=== PATIENT | female | born 1970 | race Two or more races ===

== ENCOUNTER 2019-07-03 17:18 | Emergency (ER) | payer OTHER ==
[~2019-07-03] VITALS: Ht 165.1 cm; Wt 58.1 kg
--- NOTE | 2019-07-03 17:57 | NUR ---
Patient eyes close lethargic but arousable place on monitor ,gown continue to monitor
[2019-07-03 18:18] LABS: BASOPHILS # (AUTO) 0.1 /CMM (0.0-0.2); BASOPHILS % (AUTO) 1.1 % (0.0-2.0); EOSINOPHILS % (AUTO) 0.2 % (0.0-6.0); HEMATOCRIT 37 % (33-45); HEMOGLOBIN 12.2 g/dL (11.5-14.8); LYMPHOCYTES # (AUTO) 1.7 /CMM (0.8-4.8); LYMPHOCYTES % (AUTO) 33.1 % (20.0-44.0); MEAN CORPUSCULAR HGB CONC 33 g/dl (31.0-36.0); MEAN CORPUSCULAR VOLUME 97 fL (82-100); MONOCYTES # (AUTO) 0.5 /CMM (0.1-1.30); MONOCYTES % (AUTO) 10.6 % (2.0-12.0); NEUTROPHILS # (AUTO) 2.8 /CMM (1.8-8.9); PLATELET COUNT (AUTO) 271 /CMM (150-450); RED BLOOD CELL COUNT(AUTO) 3.83 MIL/uL (4.0-5.2)
[2019-07-03 18:41] LABS: ALBUMIN 3.5 g/dL (3.4-5.0); BILIRUBIN,DIRECT 0.1 mg/dL (0.0-0.2); BILIRUBIN,TOTAL 0.2 mg/dL (0.2-1.0); CALCIUM, SERUM 9.2 mg/dL (8.5-10.1); CREATININE 0.8 mg/dL (0.6-1.3); POTASSIUM 3.2 mmol/L (3.5-5.1)
--- NOTE | 2019-07-03 19:11 | NUR ---
Transfer care report to Luba FELDER
--- NOTE | 2019-07-03 19:17 | NUR ---
PT LEFT FOR CT
--- NOTE | 2019-07-03 19:28 | NUR ---
BACK FROM CT
--- NOTE | 2019-07-03 20:11 | NUR ---
PT AMBULATED TO THE BATHROOM IN AN STEADY GAIT. ALERT AND RESPONSIVE. CALM AND COOPERATIVE. ON ONGOING MONITORING.
--- NOTE | 2019-07-04 08:48 | NUR ---
MISSY SW AT BEDSIDE TALKING TO PATIENT.
--- NOTE | 2019-07-04 08:50 | NUR ---
Social service consult requested by Dr. Houser for homelessness and ETOH. Pt. is a 49 year old female who was brought to [facility] yesterday from her care home for alcohol intoxication. CAR SEAT MAKER met with the pt. bedside. Pt is alert and oriented x 4. Pt. is cooperative and pleasant with SW during the assessment. Pt' s mood is congruent. Pt. states she has been homeless since March. Pt. receives GR and Food stamps and is currently utilizing the [facility] for overnight care home. Pt. states she drinks a pint of vodka or less depending on how much she can afford. 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 Pt. denies cigarette smoking. Pt. has a psychiatric diagnosis of Depression and takes medication, however pt. is unable to name her medication. Pt. denies suicidal and homicidal ideations and visual/auditory hallucinations at this time. Pt informed CAR SEAT MAKER, she will be going back later this evening to the [facility] on [address] to go to [facility]. Pt. was provided with the following homeless care home and other homeless resources: [facility] [id number] [facility], [facility] [place], [address] [facility]. ; [facility] Homeless Resource Directory which includes food stamps, transitional housing, showers and hot meals etc; Mental Health clinics such as [facility] ; [facility] ; Health clinics;[facility] and Alcohol treatment centers such as [facility], ; [facility] Substance Abuse Hotline and [facility] . Pt. was provided with Breakfast and a TAP card. No other social service needs are requested at this time. Homeless patient waiver form was signed by the pt. and placed in pt's chart. SW updated FELIX Jaffe and Dr. Houser regarding pt's discharge plan.
--- NOTE | 2019-07-04 09:09 | NUR ---
PT AAO, AMBULATORY W/ STEADY GAIT. HOMELESS WAIVER FORM SIGNED. IV removed. Catheter intact and site benign. Pressure and 4x4 applied to site. No bleeding noted.
[2019-07-04 09:11] VITALS: BP 115/72
== END 2019-07-04 09:12 | disposition home or self-care (01) ==
LOC: ER 17:23
DX: F10.129 Alcohol abuse with intoxication, unspecified (principal); R41.82 Altered mental status, unspecified; Y90.8 Blood alcohol level of 240 mg/100 ml or more; Z59.0 Homelessness
CPT/HCPCS: 36415; 70450-TC; 80048-TC; 80076-TC; 80305; 85025-TC; G0480